=== PATIENT | female | born 1925 | race Caucasian/White ===

== ENCOUNTER → 2016-11-21 | Outpatient (CLI) | payer MEDICARE, OTHER ==
[~2016-11-21] MED LIST: /PANT40TA PO; BIMA01SOL OD; CIPR500T89 PO; COLA50CA3 PO; ELIQ2.5T PO; FLAG500T PO; ISTA0.5S OU; LISIPOW PO; LUMIGAN OU; OCUVTA PO; TIMO25OPD OD; TYLE325T5 PO; TYLE650T30 PO; VITA200016 PO; [UNRECOGNIZED DRUG - OTHER] OU
[2016-11-21 13:19] LABS: BASO % 0.6 % (0.0-1.0); EOS # 0.2 K/mm3 (0.0-0.50); EOS % 5.7 % (0.0-3.0); LARGE UNSTAINED CELL # 0.1 K/mm3 (0.0-0.4); LARGE UNSTAINED CELL % 2.2 % (0.0-4.0); LYMPH # 0.9 K/mm3 (1.5-4.5); LYMPH % 20.8 % (24.0-44.0); MEAN CORPUSCULAR HEMOGLOBIN 32.8 pg (27.0-33.0); MEAN CORPUSCULAR HGB CONC 33.3 g/dl (32.0-36.5); MEAN CORPUSCULAR VOLUME 98.7 fl (80.0-96.0); MONO # 0.2 K/mm3 (0.0-0.8); MONO % 5.8 % (0.0-5.0); NEUTROPHILS # 2.7 K/mm3 (1.8-7.7); RED CELL DISTRIBUTION WIDTH 13.2 % (11.5-14.5); WHITE BLOOD COUNT 4.2 K/mm3 (4.0-10.0)
[2016-11-21 13:21] LABS: PLATELET COUNT, AUTOMATED 86 k/mm3 (150-450)
[2016-11-21 14:20] LABS: ALBUMIN 3.4 GM/DL (3.2-5.2); ALBUMIN/GLOBULIN RATIO 1.1 (1.00-1.93); BILIRUBIN,TOTAL 0.6 MG/DL (0.2-1.0); CALCIUM LEVEL 9.1 MG/DL (8.8-10.2); CREATININE FOR GFR 1.15 MG/DL (0.55-1.02); FREE T4 1.14 NG/DL (0.76-1.46); GLOMERULAR FILTRATION RATE 47.3 (>32); POTASSIUM SERUM 3.8 MEQ/L (3.5-5.1); TOTAL PROTEIN 6.5 GM/DL (6.4-8.2)
== END ==
LOC: M SMT 10:41
PROVIDERS: ATTEND Physician Assistant
DX: R60.9 Edema, unspecified (principal); Z95.0 Presence of cardiac pacemaker; I05.8 Other rheumatic mitral valve diseases

== ENCOUNTER → 2016-12-06 | Outpatient (CLI) | payer MEDICARE, OTHER ==
--- NOTE | 2016-12-06 19:14 | REP ---
Left ribs and PA chest: There are minimally displaced fractures of the left eighth, ninth and tenth ribs anterolaterally. PA chest: Comparison is 11/21/2014. There is no pneumothorax, hemothorax or pulmonary contusion. 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 Cardiac size is upper normal. There is thoracic scoliosis convex right. 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 A stat report is generated. Signed by Ton Dyson MD 12/06/2016 07:06 P
== END ==
LOC: M ADAMS 17:12
PROVIDERS: ATTEND Physician Assistant Medical
DX: S22.42XA Multiple fractures of ribs, left side, initial encounter for closed fracture (principal); X58.XXXA Exposure to other specified factors, initial encounter; Y92.89 Other specified places as the place of occurrence of the external cause; Y93.89 Activity, other specified; Y99.8 Other external cause status